=== PATIENT | male | born 1970 | race African-American/Black ===

== ENCOUNTER 2023-12-21 12:46 | Inpatient (IN) | payer OTHER ==
[2023-12-21 15:29] VITALS: BMI 23.4
[2023-12-21] MEDS ORDERED: DICYCLOMINE HCL 10 MG CAPSULE PO PRN (17:18)
[2023-12-21] MEDS ORDERED: ACETAMINOPHEN 325 MG TABLET (FP) PO PRN (17:18)
[2023-12-21] MEDS ORDERED: BISMUTH SUBSALICYLATE 524 MG/30 ML PO PRN (17:18)
[2023-12-21] MEDS ORDERED: IBUPROFEN 400 MG TABLET (FP) PO PRN (17:18)
[2023-12-21] MEDS ORDERED: guaiFENesin 600 MG TABLET.ER (FP) PO PRN (17:18)
[2023-12-21] MEDS ORDERED: MAGNESIUM HYDROX 2400MG/30ML ORAL SUSPENSION 30 ML CUP PO PRN (17:18)
[2023-12-21] MEDS ORDERED: P-EPHED 60MG/TRIPROLIDI 2.5MG TABLET PO PRN (17:18)
[2023-12-21] MEDS ORDERED: LOPERAMIDE HCL 2 MG CAPSULE PO PRN (17:18)
[2023-12-21] MEDS ORDERED: NALOXONE (NARCAN) HCL 4 MG/0.1 ML SPRAY NS PRN (17:18)
[2023-12-21] MEDS ORDERED: BENZONATATE 200 MG CAPSULE PO PRN (17:18)
[2023-12-21] MEDS ORDERED: MAG HYDROX/AL HYDROX/SIMETH 30 ML UNIT-DOSE CUP PO PRN (17:18)
[2023-12-21] MEDS ORDERED: NALOXONE HCL 0.4 MG/ML VIAL IM PRN (17:18)
[2023-12-21] MEDS ORDERED: BENZOCAINE/MENTHOL (CHLORASEPTIC ) LOZENGE MM PRN (17:18)
[2023-12-21] MEDS ORDERED: POLYETHYLENE GLYCOL (HEALTHYLAX) 3350 17 GM PACKET PO PRN (17:18)
[2023-12-21] MEDS: THIAMINE 100 MG TABLET PO SCH (22:45)
[2023-12-21] MEDS: METHOCARBAMOL 500 MG TABLET PO PRN (22:46)
[2023-12-21] MEDS: hydrOXYzine PAMOATE 25 MG CAPSULE (FP) PO PRN (22:46)
[2023-12-21] MEDS: MELATONIN 5 MG TABLETS PO SCH (22:46)
[2023-12-22] MEDS: PRENATAL VITAMINS W/ FOLIC ACID TABLET (FP) PO SCH (09:55)
[2023-12-22] MEDS: methaDONE HCL 10 MG TABLET (FOR DETOX USE ONLY) PO ONE (09:55)
[2023-12-22] MEDS: cloNIDine HCL 0.1 MG TABLET PO PRN (09:55)
[2023-12-22] MEDS: ONDANSETRON *ODT* 4 MG TABLET SL PRN (17:59)
[2023-12-23] MEDS: IBUPROFEN 600 MG TABLET (FP) PO PRN (17:03)
[2023-12-24 06:00] VITALS: RESP 16
[2023-12-24] MEDS: methaDONE HCL 10 MG TABLET (FOR DETOX USE ONLY) PO ONE (09:30)
[2023-12-24 13:59] VITALS: BP 116/69; PULSE 63; TEMP 98
[2023-12-26] MEDS ORDERED: methaDONE HCL 10 MG TABLET (FOR DETOX USE ONLY) PO ONE (10:00)
== END 2023-12-24 16:16 | disposition left against medical advice (07) | DRG 894 ==
LOC: YASAS 12:46 → Y6N 18:18 → Y3N 18:24
PROVIDERS: ADMIT Allergy & Immunology; ATTEND Surgery
PROC: HZ2ZZZZ Detoxification Services for Substance Abuse Treatment (ICD-10-PCS; principal; 2023-12-21)
DX: F11.23 Opioid dependence with withdrawal (principal)
CPT/HCPCS: 80305; 80307; 93005; 93010; Q0162